=== PATIENT | female | born 1985 | race Two or more races ===

== ENCOUNTER → 2017-07-30 | Outpatient (CLI) | payer BC ==
[~2017-07-30] MED LIST: AMLO10TA2 PO; BIRTHCONTROL; Iron; LISI-338 PO; METF500T4 PO
--- NOTE | 2017-07-30 10:03 | KCIC ---
Indication: Polycystic ovarian syndrome. Transabdominal and transvaginal sonography was performed. The uterus measures 7.5 x 4.9 x 3.9 cm. The endometrium is 6 mm in thickness. No uterine mass is detected. The right ovary measures 3.1 x 2.4 x 1.8 cm and the left ovary measures 3.4 x 2.8 x 1.9 cm. Both ovaries demonstrate blood flow. Both ovaries contain small follicles. No adnexal mass or free fluid is seen. IMPRESSION: Unremarkable transabdominal and transvaginal pelvic ultrasound. Electronically signed by: Owen Love MD (07/30/2017 9:59 AM) [id number]
== END | disposition home or self-care (01) ==
LOC: KCIC US 08:45
PROVIDERS: ATTEND Physician Assistant Surgical
DX: E28.2 Polycystic ovarian syndrome (principal)
CPT/HCPCS: 76830; 76856

== ENCOUNTER 2017-08-07 11:43 | Emergency (ER) | payer OTHER, BC ==
[2017-08-07 12:27] LABS: URINE HCG POC HCG NEGATIVE (Negative)
[2017-08-07 13:36] LABS: ADD MAN DIFF? NO
[2017-08-07 13:39] LABS: BASO % 1 % (0-3); EOS % 2 % (0-3); HEMATOCRIT 38.1 % (36.0-47.0); HEMOGLOBIN 12.1 g/dL (12.0-15.5); LYMPH # 1.7 x10^3/uL (1.0-4.8); LYMPH % 22 % (24-48); MEAN CORPUSCULAR HEMOGLOBIN 23 pg (25-35); MEAN CORPUSCULAR HGB CONC 32 g/dL (31-37); MEAN CORPUSCULAR VOLUME 74 fL (79-100); MONO % 6 % (0-9); NEUT % 70 % (31-73); PLATELET COUNT 303 x10^3/uL (140-400); RED BLOOD COUNT 5.17 x10^6/uL (3.50-5.40); RED CELL DISTRIBUTION WIDTH 25.2 % (11.5-14.5); WHITE BLOOD COUNT 7.9 x10^3/uL (4.0-11.0)
[2017-08-07 14:01] LABS: ANION GAP 9 (6-14); BLOOD UREA NITROGEN 12 mg/dL (7-20); CALCIUM 8.2 mg/dL (8.5-10.1); CARBON DIOXIDE 27 mmol/L (21-32); CHLORIDE 102 mmol/L (98-107); CREATININE 0.7 mg/dL (0.6-1.0); GFR 97.6; GLUCOSE 222 mg/dL (70-99); POTASSIUM 4.4 mmol/L (3.5-5.1); SODIUM 138 mmol/L (136-145)
[2017-08-07 14:08] LABS: ALBUMIN 3.3 g/dL (3.4-5.0); ALK PHOS 66 U/L (46-116); ALT (SGPT) 35 U/L (14-59); AST (SGOT) 20 U/L (15-37); DIRECT BILIRUBIN < 0.1 mg/dL (0.0-0.2); MAGNESIUM 1.9 mg/dL (1.8-2.4); TOTAL BILIRUBIN 0.1 mg/dL (0.2-1.0); TOTAL PROTEIN 7.8 g/dL (6.4-8.2)
[2017-08-07 14:13] LABS: CKMB INDEX 0.6 % (0-4); CKMB MASS 0.6 ng/mL (0.0-3.6); CREATINE KINASE 105 U/L (26-192)
[2017-08-07 14:14] LABS: TROPONINI < 0.017 ng/mL (0.000-0.055)
[2017-08-07 14:35] LABS: ANISOCYTOSIS MOD; HYPOCHROMIA SLIGHT; MICROCYTOSIS MARKED; PLT ESTIMATE ADEQUATE (ADEQUATE); POLYCHROMASIA SLIGHT
[2017-08-07 14:53] LABS: BILIRUBIN,URINE NEGATIVE (NEG); GLUCOSE,URINE >=1000 mg/dL (NEG); NITRITE,URINE NEGATIVE (NEG); PROTEIN,URINE NEGATIVE (NEG-TRACE); UROBILINOGEN,URINE 0.2 mg/dL (0.2 mg/dL)
[2017-08-07] MEDS: ACETAMINOPHEN 500 MG TABLET PO (14:56)
[2017-08-07 15:00] LABS: BACTERIA,URINE MODERATE /HPF (0-FEW); RBC,URINE 0 /HPF (0-2); SQUAMOUS EPITHELIAL CELL,UR MOD /LPF; WBC,URINE RARE /HPF (0-4)
== END 2017-08-07 15:06 | disposition home or self-care (01) ==
LOC: ER 11:43
DX: S60.221A Contusion of right hand, initial encounter (principal); R07.89 Other chest pain; M54.2 Cervicalgia; M79.644 Pain in right finger(s); V47.5XXA Car driver injured in collision with fixed or stationary object in traffic accident, initial encounter; Y93.I9 Activity, other involving external motion; Y92.410 Unspecified street and highway as the place of occurrence of the external cause; Y99.8 Other external cause status
CPT/HCPCS: 36415; 71020; 72125; 73130; 80048; 80076; 81001; 81025; 82553; 83690; 83735; 84484; 85025; 87086; 93005; 99285-25